=== PATIENT | male | born 1935 ===

== ENCOUNTER 2018-11-22 14:29 | Emergency (ER) | payer MEDICARE, SELFPAY ==
[2018-11-22] VITALS (62 sets, daily range): BP systolic 68–135; BP diastolic 35–101; PULSE 71–118; RESP 20–31; TEMP 37.1–38.8; O2SAT 87–97
--- NOTE | 2018-11-22 14:38 | DI.RAD_ITS ---
SYMPTOM/DIAGNOSIS: COUGH, HYPOXIA PORTABLE CHEST: The exam is limited due to poor pulmonary inflation. The cardiac silhouette is obscured. There is mild blunting of both costophrenic angles. No focal infiltrates are seen. There are sternal wires as well as a valve prosthesis. IMPRESSION: Extremely limited exam. The lower lobes are not visible. The upper lobes appear clear.
[2018-11-22] MEDS: Normal Saline 500 ML 1000 ML IV (14:40)
--- NOTE | 2018-11-22 14:44 | ED.GENADUL_ITS ---
Discharge Plan Disposition Patient Disposition: [facility] Condition: Serious Discharge Details Chief Complaint: Fever Clinical Impression: Septic shock, UTI (urinary tract infection), Chronic indwelling Casas catheter, Hypotension, Hypoxia Primary Care Provider: Kirsten Shea ED Provider: Hilary Mathews Home Meds and New Rx's Prescriptions: No Action trazodone 50 mg Tablet 50 mg PO DAILY RF: 0 valproic acid 250 mg Capsule 250 mg PO BID RF: 0 aspirin [Aspir-81] 81 mg Tablet,Delayed Release (Dr/Ec) 81 mg PO HS RF: 0 acetaminophen [Acetaminophen Extra Strength] 500 mg Tablet 500 mg PO TID RF: 0 lidocaine [Lidoderm] 5 % Adhesive Patch,Medicated 1 patch TOPICAL DAILY RF: 0 risperidone [Risperdal] 1 mg Tablet 1 mg PO .Q1600 RF: 0 risperidone [Risperdal] 1 mg Tablet 1 mg PO .QNOON RF: 0 finasteride 5 mg Tablet 5 mg PO DAILY RF: 0 loratadine 10 mg Tablet 10 mg PO DAILY RF: 0 risperidone [Risperdal] 0.5 mg Tablet 0.5 mg PO QAM RF: 0 Medical Decision Making 83-year-old male with a history of dementia, chronic Casas, coronary artery disease, CABG, aortic valve replacement, BPH, CHF with EF of 22%, and frequent UTI's who presents from detention for fever, cough and hypoxia. EMS states they were called for patient with fever and hypoxia. EMS noted a temp of 101.2, blood pressure 70/42, heart rate 91, O2 sat 94% on nonrebreather, and a glucose of 152. Patient unable to provide history, is breathing on his own with pulse, but is not responsive to verbal stimuli. Rate 79, blood pressure 68/41, temperature 101.8. [facility] note stated that patient's family requested he be brought to the ER for evaluation. He is DNR/DNI with comfort care per records from detention. Differential diagnosis includes sepsis due to UTI, pneumonia, influenza. Will place an IV, bolus IV fluids, labs, urinalysis, CT head, blood cultures, lactate, and chest x-ray. 1800 --labs and imaging reviewed. Appears consistent with likely urosepsis. White blood cell count normal at 7. Hemoglobin 10. Lactate 3.5. Magnesium 1.5. Troponin 0.88 and likely due to demand ischemia. BNP 91899. Urinalysis notes positive nitrite, greater than 50 WBCs and RBCs, many bacteria and neg ative epithelial cells. Although patient's significantly elevated BNP could raise concern for acute CHF, his chest x-ray was negative and he has improved significantly in terms of respiratory status, and overall level of alertness after 3 L of IV fluids given. There were multiple discussions with family members, including patient's 2 daughters and granddaughter. Daughter Alma is the POA. She agrees patient is DNR/DNI but would like antibiotics, IV fluids and pressors if needed. She is agreeable with plan for central line. Family had requested either [facility] or [facility]. They currently have no beds available. They are agreeable to [facility] if needed. 1814 -- discussed [facility] hospitalist -accepts patient for transfer to ICU. Accepting physician Dr. Parks. 1914 -- R femoral central line placed. Levophed started. BP 78/47. Medical Records Medical records reviewed: Yes I reviewed the patient's medical records. Imaging Data Radiologic Study: Radiologist's impression: CT Head Without Contrast EXAM DATE/TIME: 11/22/2018 4:55 PM CLINICAL HISTORY: 83 years old, male; Pain; Other: Altered mental status; Additional info: Altered mental status. R/O acute CVA TECHNIQUE: Axial computed tomography images of the head/brain without contrast. Coronal and sagittal reformatted images were created and reviewed. COMPARISON: No relevant prior studies available. FINDINGS: Diffuse atrophy. Chronic white matter changes of probable small vessel disease. No evidence of hemorrhage. No mass effect. No acute intracranial abnormality. IMPRESSION: No evidence of acute intracranial process. CXR: No definite evidence of significant acute cardiopulmonary process. Cannot a few tiny right pleural effusion. Lab Data Lab results reviewed: Yes I reviewed the patient's lab results. 11/22/18 15:05 Urine - Reflex from Ua Urine Culture - Pending 11/22/18 15:05 Blood Blood Culture - Pending 11/22/18 15:05 Blood Blood Culture - Pending 11/22/18 14:35 Nasopharynx Influenza Types A,B Antigen - Final Laboratory Tests Range/Units 11/22/18 11/22/18 11/22/18 14:35 14:35 14:35 WBC (4.4-10.8) k/cumm 7.04 RBC (4.50-6.00) m/cumm 3.36 L Hgb (13.5-17.5) g/dL 10.8 L Hct (40.0-50.0) % 32.5 L MCV (80-95) fL 96.7 H MCH (27.0-33.0) pg 32.1 MCHC (32.0-36.0) g/dL 33.2 RDW (11.8-14.1) % 14.2 H Plt Count (130-400) x1000/uL 144 MPV (8.0-11.0) fL 10.7 Immature Gran % 1.0 Neutrophils % 96.2 Lymphocytes % 1.3 Monocytes % 1.4 Eosinophils % 0.0 Basophils % 0.1 Absolute Neutrophils (1.2-6.7) k/cumm 6.77 H Absolute Lymphocytes (1.2-3.4) k/cumm 0.09 L Absolute Monocytes (0.11-0.7) k/cumm 0.10 L Absolute Eosinophils (0.0-0.7) k/cumm 0.00 Absolute Basophils (0.0-0.2) k/cumm 0.01 Sodium (136-145) mmol/L 139 Potassium (3.5-5.1) mmol/L 4.0 Chloride (98-107) mmol/L 102 Carbon Dioxide (21.0-32.0) mmol/L 30.1 Anion Gap (3-11) mmol/L 6.9 BUN (7-18) mg/dL 29 H Creatinine (0.70-1.30) mg/dL 1.63 H Estimated GFR/1.73 m2 (mL/min/1.73m2) 40.71 Glucose (70-100) mg/dL 118 H Lactate (0.6-1.4) mmol/L 3.5 H Calcium (8.5-10.1) mg/dL 8.3 L Magnesium (1.8-2.4) mg/dL 1.5 L Total Bilirubin (0.2-1.0) mg/dL 1.0 AST (15-37) U/L 23 ALT (12-78) U/L 16 Alkaline Phosphatase (46-116) U/L 73 Troponin I (0.00-0.06) ng/mL 0.88 H NT-Pro-B Natriuret Pep ( - 299) pg/mL Total Protein (6.4-8.2) g/dL 5.7 L Albumin (3.4-5.0) g/dL 2.6 L Urine Color (Yellow) Urine Clarity Urine pH (5-8) Ur Specific Cowden (1.005-1.025) Urine Protein (Negative) mg/dL Urine Ketones (Negative) mg/dL Urine Blood (Negative) Urine Nitrite (Negative) Urine Bilirubin (Negative) Urine Urobilinogen (Up TO 0.2) EU/dL Ur Leukocyte Esterase (Negative) Urine RBC (0-2) Urine WBC (0-5) HPF Ur Epithelial Cells (Negative) HPF Urine Crystals (Negative) HPF Urine Bacteria (Negative) HPF Urine Casts (Negative) LPF Urine Mucus (Negative) Urine Other (Negative) Ur Culture Indicated? Urine Glucose (Negative) mg/dL Range/Units 11/22/18 11/22/18 14:35 15:05 WBC (4.4-10.8) k/cumm RBC (4.50-6.00) m/cumm Hgb (13.5-17.5) g/dL Hct (40.0-50.0) % MCV (80-95) fL MCH (27.0-33.0) pg MCHC (32.0-36.0) g/dL RDW (11.8-14.1) % Plt Count (130-400) x1000/uL MPV (8.0-11.0) fL Immature Gran % Neutrophils % Lymphocytes % Monocytes % Eosinophils % Basophils % Absolute Neutrophils (1.2-6.7) k/cumm Absolute Lymphocytes (1.2-3.4) k/cumm Absolute Monocytes (0.11-0.7) k/cumm Absolute Eosinophils (0.0-0.7) k/cumm Absolute Basophils (0.0-0.2) k/cumm Sodium (136-145) mmol/L Potassium (3.5-5.1) mmol/L Chloride (98-107) mmol/L Carbon Dioxide (21.0-32.0) mmol/L Anion Gap (3-11) mmol/L BUN (7-18) mg/dL Creatinine (0.70-1.30) mg/dL Estimated GFR/1.73 m2 (mL/min/1.73m2) Glucose (70-100) mg/dL Lactate (0.6-1.4) mmol/L Calcium (8.5-10.1) mg/dL Magnesium (1.8-2.4) mg/dL Total Bilirubin (0.2-1.0) mg/dL AST (15-37) U/L ALT (12-78) U/L Alkaline Phosphatase (46-116) U/L Troponin I (0.00-0.06) ng/mL NT-Pro-B Natriuret Pep ( - 299) pg/mL 97089 H Total Protein (6.4-8.2) g/dL Albumin (3.4-5.0) g/dL Urine Color (Yellow) Yellow Urine Clarity Cloudy Urine pH (5-8) >= 9.0 H Ur Specific Cowden (1.005-1.025) 1.020 Urine Protein (Negative) mg/dL >=300 H Urine Ketones (Negative) mg/dL Trace H Urine Blood (Negative) Large H Urine Nitrite (Negative) Positive H Urine Bilirubin (Negative) Small H Urine Urobilinogen (Up TO 0.2) EU/dL 1.0 H Ur Leukocyte Esterase (Negative) Large H Urine RBC (0-2) >50 H Urine WBC (0-5) HPF >50 Ur Epithelial Cells (Negative) HPF Negative Urine Crystals (Negative) HPF Negative Urine Bacteria (Negative) HPF Many Urine Casts (Negative) LPF Negative Urine Mucus (Negative) Negative Urine Other (Negative) Negative Ur Culture Indicated? Yes Urine Glucose (Negative) mg/dL Negative Influenza negative ECG Data Attestation: I personally reviewed and interpreted this ECG (s) as follows: Interpretation: 1442: 81. Atrial rhythm. Frequent PVCs. Left bundle branch block. No old EKG to compare. QTc 539. QRS 166. HPI General Mode of arrival: EMS . Date/Time Provider Initiated Documentation: 11/22/18 14:38 . Limitations to Documentation: altered mental status . Information obtained by: EMS . HPI Narrative: Patient is an 83-year-old male with a history of dementia, coronary artery disease, BPH, chronic Casas, CHF, frequent UTIs who presents from detention for fever, cough and shortness of breath. Patient is unable to provide history. Per EMS, patient was responsive to loud voice. Baseline mental status is unknown, but patient does have a history of dementia and altered mental status. Per detention records, patient developed a temp of 102 today for which she was given Tylenol at 10 AM. Also stated patient has had a congested cough, with stats noted to be 83% on 2 L. Patient had a CBC, urinalysis, and influenza sent to [facility] lab today but results not available. Patient also had his Casas catheter changed today. EMS states patient had a temperature of 101.2 for them and O2 sat of 94% on nonrebreather, with a blood pressure of 70/42. Related Data Home Medications Medication Instructions Recorded Confirmed acetaminophen [Acetaminophen Extra 500 mg PO TID 11/22/18 11/22/18 Strength] aspirin [Aspir-81] 81 mg PO HS 11/22/18 11/22/18 finasteride 5 mg PO DAILY 11/22/18 11/22/18 lidocaine [Lidoderm] 1 patch TOPICAL DAILY 11/22/18 11/22/18 loratadine 10 mg PO DAILY 11/22/18 11/22/18 risperidone [Risperdal] 0.5 mg PO QAM 11/22/18 11/22/18 risperidone [Risperdal] 1 mg PO .Q1600 11/22/18 11/22/18 risperidone [Risperdal] 1 mg PO .QNOON 11/22/18 11/22/18 trazodone 50 mg PO DAILY 11/22/18 11/22/18 valproic acid 250 mg PO BID 11/22/18 11/22/18 Allergies Allergy/AdvReac Type Severity Reaction Status Date / Time gabapentin Allergy Unknown Unverified 11/22/18 15:01 hydrochlorothiazide Allergy Unknown Unverified 11/22/18 15:01 losartan Allergy Unknown Unverified 11/22/18 15:01 mirtazapine Allergy Unknown Unverified 11/22/18 15:01 niacin Allergy Unknown Unverified 11/22/18 15:01 sertraline Allergy Unknown Unverified 11/22/18 15:01 sulfamethoxazole Allergy Unknown Unverified 11/22/18 15:01 [From Bactrim] trimethoprim [From Bactrim] Allergy Unknown Unverified 11/22/18 15:01 General CASEY: 2 Review of Systems Review of Systems Unobtainable due to mental status PFSH Medical History Frequent UTI (Acute) BPH (benign prostatic hyperplasia) (Chronic) CHF (congestive heart failure) (Chronic) Coronary artery disease (Chronic) Dementia (Chronic) Surgical History Hx of CABG (Chronic) Social History Smoking/Tobacco Use Status: Unknown substance use type: unknown Exam Const General: frail appearing, ill appearing acutely and lethargic HENMT Head: normal to inspection Ears: external ears normal Mouth: mucous membranes dry Eyes General: appearance normal, both eyes and all related structures Eyelids: eyelids normal Neck Neck: normal visual inspection Resp Auscultation: diminished lung sounds bilaterally throughout Cardio Rate: regular rate Rhythm: regular rhythm GI Inspection: normal to inspection Palpation: soft, not firm, no guarding, no hepatosplenomegaly, no masses and nontender Penis: other (Casas catheter in place, with bright red blood around catheter and tip) Neuro General: other (Unable to assess due to current condition) Extrem General: no edema Course Lab/Test Results Lab/Test Results: 11/22/18 14:40 Nasopharynx Influenza Types A,B Antigen - Pending 11/22/18 14:38 Blood Blood Culture - Pending 11/22/18 14:38 Blood Blood Culture - Pending Procedures Central Line Placement Right Femoral: Time Out Performed: Yes Patient Placed on Monitor/Pulse Ox: Yes MD Prep: mask, gown and gloves Central Line Prep: Chlorhexidine scrub Local Anesthetic: Lidocaine 1% Amount of anesthesia used (mL): 6 Ultrasound Used for Placement: No Central Line Lumen Inserted: triple Post Procedure: good blood return, all ports aspirated, flushed, capped and sutured in place with 3-0 nylon Patient Tolerated Procedure: well Complications: none Critical Care Time Total Critical Care Time: 30
[2018-11-22 14:52] LABS: Lactate-non-spesis 3.5 mmol/L (0.6-1.4)
[2018-11-22 14:53] LABS: Abs Immature Grans 0.07 k/cumm (0.0-0.09); Absolute Basophil Count 0.01 k/cumm (0.0-0.2); Absolute Lymphocyte Count 0.09 k/cumm (1.2-3.4); Absolute Neutrophil Count 6.77 k/cumm (1.2-6.7); Basophils % 0.1; HCT 32.5 % (40.0-50.0); HGB 10.8 g/dL (13.5-17.5); Lymphocytes % 1.3; Mean Corp. HGB Concentration 33.2 g/dL (32.0-36.0); Mean Corpuscular Hemoglobin 32.1 pg (27.0-33.0); Mean Corpuscular Volume 96.7 fL (80-95); Mean Platelet Volume 10.7 fL (8.0-11.0); Monocytes % 1.4; Neutrophils % 96.2; Platelet Count 144 x1000/uL (130-400); RBC 3.36 m/cumm (4.50-6.00); RBC Distribution Width 14.2 % (11.8-14.1); White Blood Cell Count 7.04 k/cumm (4.4-10.8)
[2018-11-22] MEDS: Acetaminophen 650 MG SUPP PR (15:10)
[2018-11-22 15:11] LABS: ALT 16 U/L (12-78); AST 23 U/L (15-37); Albumin 2.6 g/dL (3.4-5.0); Alkaline Phosphatase 73 U/L (46-116); Anion Gap 6.9 mmol/L (3-11); BUN 29 mg/dL (7-18); CO2 30.1 mmol/L (21.0-32.0); CREATININE 1.63 mg/dL (0.70-1.30); Calcium 8.3 mg/dL (8.5-10.1); Chloride 102 mmol/L (98-107); Estimated GFR 40.71 (mL/min/1.73m2); Glucose 118 mg/dL (70-100); Magnesium 1.5 mg/dL (1.8-2.4); Sodium 139 mmol/L (136-145); Total Protein 5.7 g/dL (6.4-8.2)
[2018-11-22 15:13] LABS: Troponin I 0.88 ng/mL (0.00-0.06)
[2018-11-22 15:14] LABS: Bilirubin Small (Negative); Blood Large (Negative); Clarity Cloudy; Glucose Negative (Negative); Ketones Trace mg/dL (Negative); Leukocyte Esterase Large (Negative); Nitrite Positive (Negative); pH >= 9.0 (5-8)
[2018-11-22 15:16] LABS: NT-proBNP 24314 pg/mL
[2018-11-22] MEDS: Lactated Ringers 1,000 ML 1000 ML IV ×2 (15:16→16:11)
[2018-11-22 15:25] LABS: WBC >50 HPF (0-5)
[2018-11-22 15:26] LABS: Bacteria Many HPF (Negative); C & S Indicated? Yes; Casts Negative LPF (Negative); Crystals Negative HPF (Negative); Epithelial Cells Negative HPF (Negative); Mucus Negative (Negative); Other Cells Negative (Negative); RBC >50 (0-2)
[2018-11-22] MEDS: PIPERACILLIN/TAZO 3.375 GM in Normal Saline 50 ML IVPB (15:41)
--- NOTE | 2018-11-22 16:20 | DI.VRAD_ITS ---
EXAM: XR Chest, 1 View EXAM DATE/TIME: 11/22/2018 3:28 PM CLINICAL HISTORY: 83 years old, male; Signs and symptoms; Other: Cough hypoxia; Patient HX: Cough, hypoxia TECHNIQUE: XR of the chest, 1 view. COMPARISON: No relevant prior studies available. FINDINGS: Prior median sternotomy. Minimal basilar atelectasis. No significant focal consolidations. Bony structures unremarkable for age. Cannot exclude a tiny right pleural effusion. IMPRESSION: No definite evidence of significant acute cardiopulmonary disease. Dictated and Authenticated by: Loki Deal MD. Ordering:VERONICA Richard MD
--- NOTE | 2018-11-22 17:05 | DI.CT_ITS ---
SYMPTOM/DIAGNOSIS: ALTERED MENTAL STATUS, R/O ACUTE CVA NONCONTRAST HEAD CT: There is moderate atrophy. There are prominent areas of low attenuation in the white matter diffusely consistent with sequela of microvascular disease. The ventricles are enlarged consistent with atrophy. No acute hemorrhage, mass or infarct seen. IMPRESSION: Prominent white matter changes of small vessel disease. Atrophy. No acute abnormality.
--- NOTE | 2018-11-22 17:13 | DI.VRAD_ITS ---
EXAM: CT Head Without Contrast EXAM DATE/TIME: 11/22/2018 4:55 PM CLINICAL HISTORY: 83 years old, male; Pain; Other: Altered mental status; Additional info: Altered mental status. R/O acute CVA TECHNIQUE: Axial computed tomography images of the head/brain without contrast. Coronal and sagittal reformatted images were created and reviewed. COMPARISON: No relevant prior studies available. FINDINGS: Diffuse atrophy. Chronic white matter changes of probable small vessel disease. No evidence of hemorrhage. No mass effect. No acute intracranial abnormality. IMPRESSION: No evidence of acute intracranial process. Dictated and Authenticated by: Loki Deal MD. Ordering:VERONICA Richard MD
[2018-11-22] MEDS: Normal Saline Flush 10 ML SYR IVP (19:49)
[2018-11-22] MEDS: VANCOMYCIN 1,250 MG in Normal Saline 250 ML 166.6666 MG IVPB (19:49)
[2018-11-22] MEDS: DEXTROSE 5%-WATER 250 ML 18.8 ML (19:50)
--- NOTE | 2018-11-23 08:55 | NUR.NOTE ---
Nursing Note: Preliminary blood culture results were faxed to [facility] [place] ICU [address] No. Agnes Dunn.
--- NOTE | 2018-11-24 07:44 | NUR.NOTE ---
patient transferred to [facility] [place], urine culture final report faxed to [phone].Nursing Note:
== END 2018-11-22 19:55 | disposition short-term general hospital (02) ==
PROVIDERS: Emergency Provider Physician Assistant; PCP Legal Medicine
DX: A41.9 Sepsis, unspecified organism (principal); R65.21 Severe sepsis with septic shock; N39.0 Urinary tract infection, site not specified; B96.4 Proteus (mirabilis) (morganii) as the cause of diseases classified elsewhere; Z96.0 Presence of urogenital implants; R77.8 Other specified abnormalities of plasma proteins; R09.02 Hypoxemia; I95.9 Hypotension, unspecified; Y84.6 Urinary catheterization as the cause of abnormal reaction of the patient, or of later complication, without mention of misadventure at the time of the procedure; Z87.442 Personal history of urinary calculi
CPT/HCPCS: 36410; 36415; 36556; 80053; 87040; 87077; 87449; 93005; 96361; 96365; 96368; 99291; 70450; 71045; 81003; 81015; 83605; 83735; 83880; 84484; 85025; 87086; 87186; 93010; J2543